=== PATIENT | female | born 1950 | race Caucasian/White ===

== ENCOUNTER 2017-10-26 08:36 | Outpatient (CLI) | payer MEDICARE | END 2017-10-26 08:37 | disposition short-term general hospital (02) | LOC: EMS 08:36 | PROVIDERS: ATTEND Surgery | DX: R53.1 Weakness (principal) | CPT/HCPCS: A0170; A0425; A0427 ==

== ENCOUNTER 2017-11-05 13:24 | Outpatient (CLI) | payer MEDICARE | END 2017-11-05 13:25 | disposition short-term general hospital (02) | LOC: EMS 13:24 | PROVIDERS: ATTEND Surgery | DX: R47.9 Unspecified speech disturbances (principal); Z86.73 Personal history of transient ischemic attack (TIA), and cerebral infarction without residual deficits | CPT/HCPCS: A0170; A0425; A0429 ==

== ENCOUNTER 2021-01-22 13:52 | Outpatient (CLI) | payer MEDICARE ==
[2021-01-22 20:05] LABS: BASOPHILS % (AUTO) 0.7 %; EOSINOPHILS # (AUTO) 0.1 10^3/uL (0.0-0.7); EOSINOPHILS % (AUTO) 1.3 %; HGB - HEMOGLOBIN 13.2 g/dL (12.0-16.0); LYMPHOCYTES # (AUTO) 2.4 10^3/uL (1.5-3.5); LYMPHOCYTES % (AUTO) 39.3 %; MEAN CORPUSCULAR HEMOGLOBIN 31.9 pg (27.0-31.0); MEAN CORPUSCULAR VOLUME 96.6 fL (81.0-99.0); MEAN PLATELET VOLUME 11.8 fL (7.9-10.8); MONOCYTES # (AUTO) 0.5 10^3/uL (0.0-1.0); MONOCYTES % (AUTO) 8.5 %; PLT - PLATELET COUNT 203 10^3/uL (130-450); RED BLOOD COUNT 4.14 10^6/uL (4.20-5.40); RED CELL DISTRIBUTION WIDTH 12.5 % (12.0-15.0)
[2021-01-22 20:18] LABS: ALBUMIN 3.8 g/dL (3.2-5.5); ALBUMIN/GLOBULIN RATIO 1.2 (1.0-2.2); ALKALINE PHOSPHATASE 71 IU/L (42-121); ALT ALANINE AMINOTRANSFERASE 27 IU/L (10-60); AST ASPARTATE AMINOTRANSFERASE 29 IU/L (10-42); BILIRUBIN,TOTAL 0.5 mg/dL (0.2-1.0); BUN - BLOOD UREA NITROGEN 20 mg/dL (6-20); CALCIUM 9.1 mg/dL (8.5-10.3); CARBON DIOXIDE - CO2 26 mmol/L (21-32); CHLORIDE 104 mmol/L (101-111); CHOL/HDL RATIO 3.2 (<4.4); CHOLESTEROL 138 mg/dL; GFR - MDRD 55 (>89); GLUCOSE 139 mg/dL (70-100); HDL CHOLESTEROL 43 mg/dL; LDL CHOLESTEROL,CALCULATED 73 mg/dL; LDL/HDL RATIO 1.7 (<4.4); POTASSIUM 4.1 mmol/L (3.5-5.0); SODIUM 138 mmol/L (135-145); TOTAL PROTEIN 7.1 g/dL (6.7-8.2); TRIGLYCERIDES 112 mg/dL; VLDL CHOLESTEROL 22 mg/dL
== END 2021-01-22 13:53 | disposition home or self-care (01) ==
LOC: LAB.S 13:52
PROVIDERS: ATTEND Internal Medicine
DX: I48.91 Unspecified atrial fibrillation (principal); Z79.01 Long term (current) use of anticoagulants; E78.5 Hyperlipidemia, unspecified
CPT/HCPCS: 36415; 80053; 80061; 83721; 85025

== ENCOUNTER 2021-05-04 10:10 | Outpatient (CLI) | payer MEDICARE | END 2021-05-04 23:59 | disposition home or self-care (01) | LOC: LAB.S 10:10 | PROVIDERS: ATTEND Physician Assistant | DX: J01.90 Acute sinusitis, unspecified (principal); Z20.822 Contact with and (suspected) exposure to COVID-19 ==

== ENCOUNTER 2021-05-08 17:25 | Outpatient (CLI) | payer MEDICARE ==
[2021-05-08 20:19] LABS: HCT - HEMATOCRIT 41.7 % (37.0-47.0); HGB - HEMOGLOBIN 13.7 g/dL (12.0-16.0); MEAN CORPUSCULAR HEMOGLOBIN 32.2 pg (27.0-31.0); MEAN CORPUSCULAR HGB CONC 32.9 g/dL (32.0-36.0); MEAN CORPUSCULAR VOLUME 97.9 fL (81.0-99.0); MEAN PLATELET VOLUME 11.2 fL (7.9-10.8); RED BLOOD COUNT 4.26 10^6/uL (4.20-5.40); RED CELL DISTRIBUTION WIDTH 12.3 % (12.0-15.0); WHITE BLOOD COUNT 6.9 x10^3/uL (4.8-10.8)
== END 2021-05-08 17:26 | disposition home or self-care (01) ==
LOC: LAB.S 17:25
PROVIDERS: ATTEND Nurse Practitioner
DX: I48.91 Unspecified atrial fibrillation (principal)
CPT/HCPCS: 36415; 82565; 85027; 85610

== ENCOUNTER 2021-07-28 08:01 | Outpatient (CLI) | payer MEDICARE ==
[2021-07-28 14:51] LABS: BASOPHILS # (AUTO) 0.1 10^3/uL (0.0-0.1); EOSINOPHILS # (AUTO) 0.2 10^3/uL (0.0-0.7); HCT - HEMATOCRIT 43.9 % (37.0-47.0); LYMPHOCYTES # (AUTO) 2.3 10^3/uL (1.5-3.5); LYMPHOCYTES % (AUTO) 47.1 %; MEAN CORPUSCULAR HEMOGLOBIN 31.4 pg (27.0-31.0); MEAN CORPUSCULAR HGB CONC 31.9 g/dL (32.0-36.0); MEAN CORPUSCULAR VOLUME 98.4 fL (81.0-99.0); MEAN PLATELET VOLUME 10.8 fL (7.9-10.8); MONOCYTES # (AUTO) 0.5 10^3/uL (0.0-1.0); MONOCYTES % (AUTO) 10.4 %; NEUTROPHILS # (AUTO) 1.8 10^3/uL (1.5-6.6); NEUTROPHILS % (AUTO) 37.3 %; PLT - PLATELET COUNT 201 10^3/uL (130-450); RED BLOOD COUNT 4.46 10^6/uL (4.20-5.40); RED CELL DISTRIBUTION WIDTH 12.9 % (12.0-15.0); WHITE BLOOD COUNT 4.8 x10^3/uL (4.8-10.8)
[2021-07-28 15:43] LABS: ALBUMIN 3.9 g/dL (3.2-5.5); ALBUMIN/GLOBULIN RATIO 1.1 (1.0-2.2); ALKALINE PHOSPHATASE 75 IU/L (42-121); ALT ALANINE AMINOTRANSFERASE 24 IU/L (10-60); AST ASPARTATE AMINOTRANSFERASE 26 IU/L (10-42); BILIRUBIN,TOTAL 0.7 mg/dL (0.2-1.0); BUN - BLOOD UREA NITROGEN 15 mg/dL (6-20); CALCIUM 9.3 mg/dL (8.5-10.3); CARBON DIOXIDE - CO2 28 mmol/L (21-32); CHLORIDE 102 mmol/L (101-111); CHOL/HDL RATIO 3.4 (<4.4); CHOLESTEROL 134 mg/dL; GFR - MDRD 55 (>89); GLUCOSE 99 mg/dL (70-100); HDL CHOLESTEROL 40 mg/dL; LDL CHOLESTEROL,CALCULATED 79 mg/dL; POTASSIUM 4.3 mmol/L (3.5-5.0); SODIUM 138 mmol/L (135-145); TOTAL PROTEIN 7.3 g/dL (6.7-8.2); TRIGLYCERIDES 76 mg/dL; VLDL CHOLESTEROL 15 mg/dL
== END 2021-07-28 08:02 | disposition home or self-care (01) ==
LOC: LAB.S 08:01
PROVIDERS: ATTEND Internal Medicine
DX: E78.5 Hyperlipidemia, unspecified (principal); Z79.899 Other long term (current) drug therapy; Z79.01 Long term (current) use of anticoagulants; I48.91 Unspecified atrial fibrillation; I63.413 Cerebral infarction due to embolism of bilateral middle cerebral arteries
CPT/HCPCS: 36415; 80053; 80061; 83721; 85025

== ENCOUNTER 2022-08-19 08:00 | Outpatient (CLI) | payer MEDICARE ==
--- NOTE | 2022-08-20 12:00 | XRAY Report ---
PROCEDURE: Chest 2 View X-Ray INDICATIONS: CHEST CONGESTION TECHNIQUE: 2 views of the chest were acquired. COMPARISON: None. FINDINGS: Surgical changes and devices: None. Lungs and pleura: No pleural effusions or pneumothorax. Lungs are clear. Mediastinum: Mediastinal contours are normal. Heart size is normal. Bones and chest wall: No suspicious bony abnormalities. Soft tissues appear unremarkable. IMPRESSION: No acute cardiopulmonary abnormality. Reviewed by: Alfie Hogue MD on 08/20/2022 11:58 AM [facility] Approved by: Alfie Hogue MD on 08/20/2022 11:58 AM [facility] Station ID: [id number]
== END 2022-08-19 23:59 | disposition home or self-care (01) ==
LOC: DI.S 08:00
PROVIDERS: ATTEND Physician Assistant Medical
DX: R09.89 Other specified symptoms and signs involving the circulatory and respiratory systems (principal)

== ENCOUNTER 2022-10-11 00:57 | Outpatient (CLI) | payer MEDICARE | END 2022-10-11 00:58 | disposition left against medical advice (07) | LOC: EMS 00:57 | DX: M54.9 Dorsalgia, unspecified (principal); R07.89 Other chest pain; F41.9 Anxiety disorder, unspecified ==

== ENCOUNTER 2022-12-03 12:59 | Outpatient (CLI) | payer MEDICARE ==
[2022-12-03 14:38] LABS: BASOPHILS # (AUTO) 0.1 10^3/uL (0.0-0.1); BASOPHILS % (AUTO) 0.9 %; EOSINOPHILS # (AUTO) 0.1 10^3/uL (0.0-0.7); EOSINOPHILS % (AUTO) 1.9 %; HCT - HEMATOCRIT 41.6 % (37.0-47.0); HGB - HEMOGLOBIN 13.5 g/dL (12.0-16.0); LYMPHOCYTES # (AUTO) 2.2 10^3/uL (1.5-3.5); LYMPHOCYTES % (AUTO) 32.6 %; MEAN CORPUSCULAR HEMOGLOBIN 31.8 pg (27.0-31.0); MEAN CORPUSCULAR HGB CONC 32.5 g/dL (32.0-36.0); MEAN CORPUSCULAR VOLUME 97.9 fL (81.0-99.0); MEAN PLATELET VOLUME 10.5 fL (7.9-10.8); MONOCYTES # (AUTO) 0.7 10^3/uL (0.0-1.0); MONOCYTES % (AUTO) 9.6 %; NEUTROPHILS # (AUTO) 3.8 10^3/uL (1.5-6.6); NEUTROPHILS % (AUTO) 54.7 %; PLT - PLATELET COUNT 201 10^3/uL (130-450); RED BLOOD COUNT 4.25 10^6/uL (4.20-5.40); WHITE BLOOD COUNT 6.9 x10^3/uL (4.8-10.8)
[2022-12-03 14:47] LABS: INR 1.2 (0.8-1.2); PT - PROTHROMBIN TIME 12.9 secs (9.9-12.6)
[2022-12-03 15:04] LABS: CALCIUM 9.1 mg/dL (8.5-10.3); POTASSIUM 4.5 mmol/L (3.5-5.0)
== END 2022-12-03 13:00 | disposition home or self-care (01) ==
LOC: LAB.S 12:59
PROVIDERS: ATTEND Internal Medicine Cardiovascular Disease
DX: Z95.818 Presence of other cardiac implants and grafts (principal)
CPT/HCPCS: 36415; 80048; 85025; 85610

== ENCOUNTER 2023-03-15 08:00 | Outpatient (CLI) | payer MEDICARE ==
--- NOTE | 2023-03-15 18:13 | XRAY Report ---
PROCEDURE: Chest 2 View X-Ray INDICATIONS: BRONCHITIS, ACUTE TECHNIQUE: 2 views of the chest were acquired. COMPARISON: None. FINDINGS: Surgical changes and devices: None. Lungs and pleura: No pleural effusions or pneumothorax. Lungs are clear. Mediastinum: Mediastinal contours appear normal. Mild cardiomegaly. Bones and chest wall: No suspicious bony lesions. Overlying soft tissues appear unremarkable. IMPRESSION: Mild cardiomegaly. No acute cardiopulmonary process. Reviewed by: Patrice Garces MD on 03/15/2023 6:12 PM PDT Approved by: Patrice Garces MD on 03/15/2023 6:12 PM PDT Station ID: [id number]
== END 2023-03-15 23:59 | disposition home or self-care (01) ==
LOC: DI.S 08:00
PROVIDERS: ATTEND Emergency Medicine
DX: J20.9 Acute bronchitis, unspecified (principal); I51.7 Cardiomegaly

== ENCOUNTER 2023-07-18 08:00 | Outpatient (CLI) | payer MEDICARE | END 2023-07-18 23:59 | disposition home or self-care (01) | LOC: LAB.S 08:00 | PROVIDERS: ATTEND Physician Assistant | DX: R05.9 Cough, unspecified (principal); R09.89 Other specified symptoms and signs involving the circulatory and respiratory systems; Z20.822 Contact with and (suspected) exposure to COVID-19 ==

== ENCOUNTER 2024-01-14 08:00 | Outpatient (CLI) | payer MEDICARE ==
--- NOTE | 2024-01-14 15:38 | XRAY Report ---
PROCEDURE: Ribs w/PA Chest 3+V LT INDICATIONS: LEFT RIB CONTUSION TECHNIQUE: 3 views of the ribs were acquired, along with a single view chest. COMPARISON: 03/15/2023 FINDINGS: Surgical changes and devices: None. Bones and chest wall: No fractures or dislocations. No suspicious bony lesions. Overlying soft tis sues appear unremarkable. Lungs and pleura: No pleural effusions or pneumothorax. Lungs appear clear. Mediastinum: The aorta is prominent and tortuous. The cardiac contours are within normal limits. IMPRESSION: No displaced rib fracture or pneumothorax. Reviewed by: Vini Zhang MD on 01/14/2024 2:36 PM [facility] Approved by: Vini Zhang MD on 01/14/2024 2:36 PM [facility] Station ID: [id number]
== END 2024-01-14 23:59 | disposition home or self-care (01) ==
LOC: DI.S 08:00
PROVIDERS: ATTEND Physician Assistant Medical
DX: S20.212A Contusion of left front wall of thorax, initial encounter (principal)

== ENCOUNTER 2024-02-18 08:00 | Outpatient (CLI) | payer MEDICARE ==
--- NOTE | 2024-02-20 00:55 | XRAY Report ---
PROCEDURE: Chest 2V INDICATIONS: CHEST CONGESTION TECHNIQUE: 2 views of the chest were acquired. COMPARISON: Chest regressed 03/15/2020. FINDINGS: Surgical changes and devices: None. Lungs and pleura: No pleural effusions or pneumothorax. Lungs are hyperexpanded clear. Mediastinum: Mediastinal contours appear normal. Heart size is normal. Bones and chest wall: No suspicious bony lesions. Overlying soft tissues appear unremarkable. IMPRESSION: No acute cardiopulmonary process. Reviewed by: Alfie Hogue MD on 02/20/2024 12:54 AM PDT Approved by: Alfie Hogue MD on 02/20/2024 12:54 AM PDT Station ID: [id number]
== END 2024-02-18 23:59 | disposition home or self-care (01) ==
LOC: DI.S 08:00
PROVIDERS: ATTEND Physician Assistant Medical
DX: J45.901 Unspecified asthma with (acute) exacerbation (principal)

== ENCOUNTER 2024-04-06 07:13 | Outpatient (CLI) | payer MEDICARE ==
--- NOTE | 2024-04-06 13:38 | CT Report ---
PROCEDURE: Lower Extremity LT WO INDICATIONS: L THIGH STRAIN TECHNIQUE: Noncontrast 3-mm axial sections acquired from the distal tibial shaft to the talar dome, with coronal and sagittal reformats. For radiation dose reduction, the following was used: automated exposure c ontrol, adjustment of mA and/or kV according to patient size. COMPARISON: None. FINDINGS: Image quality: Excellent. Bones: No acute osseous fracture or dislocation. No osseous avulsion is seen. Mild degenerative bray ges in the left hip and left knee. No suspicious osseous lesion. Soft tissues: Fluid signal is seen along the course of the proximal hamstring tendons at the posteri or aspect of the upper to mid thigh. There is suspected high-grade or complete tearing of the proxima l hamstring tendons with distal tendon retraction measuring at least 3 cm. However, the tendons, liga ments, and articular cartilages are not well evaluated. The thigh musculature is otherwise normal in signal intensity and bulk. Colonic diverticula are seen in the included colon. IMPRESSION: Fluid adjacent to the ischial tuberosity along the course of the hamstring tendons is suspicious for high-grade or complete tearing of the left proximal hamstring tendons at their origins. There appears to be at least 3 cm distal retraction of torn tendons, although the tendons are not optimally evalua hien on CT. MRI could be performed for further characterization if indicated clinically. No acute osse ous abnormality. Reviewed by: Alfie Hogue MD on 04/06/2024 1:37 PM PDT Approved by: Alfie Hogue MD on 04/06/2024 1:37 PM PDT Station ID: [id number]
== END 2024-04-06 07:14 | disposition home or self-care (01) ==
LOC: DI 07:13
PROVIDERS: ATTEND Nurse Practitioner
DX: S76.912A Strain of unspecified muscles, fascia and tendons at thigh level, left thigh, initial encounter (principal)

== ENCOUNTER 2024-04-25 08:35 | Outpatient (CLI) | payer MEDICARE ==
[2024-04-25 15:53] LABS: CHOL/HDL RATIO 3.3 (<4.4); CHOLESTEROL 128 mg/dL; HDL CHOLESTEROL 39 mg/dL; LDL CHOLESTEROL,CALCULATED 69 mg/dL; LDL/HDL RATIO 1.8 (<4.4); TRIGLYCERIDES 99 mg/dL; VLDL CHOLESTEROL 20 mg/dL
== END 2024-04-25 08:36 | disposition home or self-care (01) ==
LOC: LAB.S 08:35
PROVIDERS: ATTEND Internal Medicine Cardiovascular Disease
DX: E78.5 Hyperlipidemia, unspecified (principal)
CPT/HCPCS: 36415; 80061; 83721